=== PATIENT | male | born 1980 | race Caucasian/White ===

== ENCOUNTER → 2016-11-07 | Outpatient (CLI) | payer BC | END | disposition home or self-care (01) | LOC: SUSANVILLE 13:00 | PROVIDERS: ATTEND Internal Medicine Cardiovascular Disease | DX: I08.1 Rheumatic disorders of both mitral and tricuspid valves (principal); I37.1 Nonrheumatic pulmonary valve insufficiency; I51.7 Cardiomegaly | CPT/HCPCS: 93306 ==

== ENCOUNTER → 2017-01-05 | Outpatient (CLI) | payer BC ==
[~2017-01-05] MED LIST: REGADENOSON 0.4 MG/5 ML SYRINGE ONE
== END | disposition home or self-care (01) ==
LOC: CFH 12:24
PROVIDERS: ATTEND Internal Medicine Cardiovascular Disease
DX: I34.0 Nonrheumatic mitral (valve) insufficiency (principal); I10 Essential (primary) hypertension
CPT/HCPCS: 76770; 78452; 93017; A9502; J2785

== ENCOUNTER → 2017-01-10 | Day surgery (SDC) | payer BC ==
[~2017-01-10] VITALS: Ht 175.3 cm; Wt 102.0 kg
[~2017-01-10] MED LIST changes: +BIVALIRUDIN 250 MG ONE; +FENTANYL PF 100 MCG/2ML ONE; +HEPARIN 1,000 UNITS/ML, 10ML ONE; +HYDR25TA6 PO; +IRBE300T40 PO; +LIDOCAINE 2%, 20ML ONE; +MIDAZOLAM 1 MG/ML, 5ML ONE; +NITROGLYCERIN 5 MG/ML, 10ML ONE; -REGADENOSON 0.4 MG/5 ML SYRINGE ONE; +SODIUM CHLORIDE 0.9% 1,000 ML IV SCH; +TICAGRELOR 90 MG TABLET ONE; +VERAPAMIL 2.5 MG/ML, 2ML ONE
[2017-01-10 10:57] VITALS: BP 142/88
== END | disposition home or self-care (01) ==
LOC: CACL 10:15
PROVIDERS: ATTEND Internal Medicine Cardiovascular Disease
DX: R94.39 Abnormal result of other cardiovascular function study (principal); I10 Essential (primary) hypertension; E78.2 Mixed hyperlipidemia; I34.0 Nonrheumatic mitral (valve) insufficiency
CPT/HCPCS: 93458; 99152; 99153; C1894; J1644; J2250; J3010; J3490; Q9967; J0583

== ENCOUNTER 2017-03-31 17:30 | Emergency (ER) | payer BC ==
[~2017-03-31] VITALS: Ht 175.3 cm; Wt 90.6 kg
[~2017-03-31 17:30] MED LIST changes: -BIVALIRUDIN 250 MG ONE; -FENTANYL PF 100 MCG/2ML ONE; -HEPARIN 1,000 UNITS/ML, 10ML ONE; -LIDOCAINE 2%, 20ML ONE; -MIDAZOLAM 1 MG/ML, 5ML ONE; -NITROGLYCERIN 5 MG/ML, 10ML ONE; -SODIUM CHLORIDE 0.9% 1,000 ML IV SCH; -TICAGRELOR 90 MG TABLET ONE; -VERAPAMIL 2.5 MG/ML, 2ML ONE
[2017-03-31 18:13] LABS: HEMATOCRIT 48.6 % (39.2-51.8); HEMOGLOBIN 16.2 g/dL (13.7-18.0); WHITE BLOOD COUNT 7.4 x10^3/uL (3.4-10)
[2017-03-31 18:21] LABS: BLOOD UREA NITROGEN 25 mg/dL (7-18)
[2017-03-31] MEDS ORDERED: LIDOCAINE 1%, 20ML ONE (18:56)
[2017-03-31] MEDS ORDERED: NALOXONE 0.4 MG/ML, 1ML ONE (19:02)
[2017-03-31 20:25] VITALS: BP 162/89
== END 2017-03-31 20:28 | disposition home or self-care (01) ==
LOC: ED 20:15
DX: S21.119A Laceration without foreign body of unspecified front wall of thorax without penetration into thoracic cavity, initial encounter (principal); I10 Essential (primary) hypertension; X58.XXXA Exposure to other specified factors, initial encounter; Y93.89 Activity, other specified; Y92.89 Other specified places as the place of occurrence of the external cause; Y99.8 Other external cause status
CPT/HCPCS: 12001; 36415; 71010; 80048; 82040; 85025; 85610